=== PATIENT | female | born 1945 | race American Indian/Alaskan Native ===

== ENCOUNTER 2016-09-25 09:33 | Outpatient (CLI) | payer MEDICARE, OTHER ==
--- NOTE | 2016-09-26 08:23 | Mammography Report ---
BILATERAL DIGITAL SCREENING MAMMOGRAM with CAD: 09/25/16 09:33:00 CLINICAL: Routine screening. COMPARISON: 09/22/15 FINDINGS: There are bilateral scattered areas of fibroglandular density.No mass, architectural distortion or suspicious calcifications. IMPRESSION: No mammographic evidence of malignancy. BI-RADS CATEGORY: 1 -- Negative RECOMMENDATION: Routine mammographic screening in one year. COMMENT: Patient follow-up letters are generated by our [employer] application.
== END 2016-09-25 09:34 | disposition home or self-care (01) ==
LOC: SPVWC 09:33
PROVIDERS: ATTEND Internal Medicine
DX: Z12.31 Encounter for screening mammogram for malignant neoplasm of breast (principal)
CPT/HCPCS: 77067; G0202

== ENCOUNTER 2017-10-02 11:25 | Outpatient (CLI) | payer MEDICARE, OTHER ==
--- NOTE | 2017-10-02 16:31 | Mammography Report ---
BILATERAL DIGITAL SCREENING MAMMOGRAM with CAD: 10/02/17 11:25:00 CLINICAL: Routine screening. COMPARISON: 09/25/16 FINDINGS: There are bilateral scattered areas of fibroglandular density.No mass, architectural distortion or suspicious calcifications. IMPRESSION: No mammographic evidence of malignancy. BI-RADS CATEGORY: 1 -- Negative RECOMMENDATION: Routine mammographic screening in one year. COMMENT: Patient follow-up letters are generated by our [employer] application.
== END 2017-10-02 11:26 | disposition home or self-care (01) ==
LOC: SPVWC 11:25
PROVIDERS: ATTEND Internal Medicine
DX: Z12.31 Encounter for screening mammogram for malignant neoplasm of breast (principal)
CPT/HCPCS: 77067

== ENCOUNTER 2018-10-05 11:20 | Outpatient (CLI) | payer MEDICARE, OTHER ==
--- NOTE | 2018-10-05 14:55 | Mammography Report ---
BILATERAL DIGITAL SCREENING MAMMOGRAM with CAD: 10/05/18 11:20:00 CLINICAL: Routine screening. COMPARISON:10/02/17 and 09/25/16 FINDINGS: There are bilateral scattered fibroglandular densities.A left asymmetry with architectural distortion on the MLO view requires additional imaging. No suspicious calcifications. The right breast is negative. IMPRESSION: Left asymmetry requiring further workup. BI-RADS CATEGORY: 0 -- Additional Imaging Evaluation Required RECOMMENDATION: Recall for left mediolateral , spot magnification MLO views and left breast ultrasound if needed. ACR BI-RADS MAMMOGRAPHIC CODES: 0 = Needs additional imaging evaluation; 1 = Negative; 2 = Benign; 3 = Probably benign; 4 = Suspicious; 5 = Malignant; 6 = Known biopsy-proven malignancy COMMENT: 1. Dense breast tissue, i.e., adenosis, fibrocystic changes, etc., may obscure an underlying neoplasm. 2. Approximately 10% of cancers are not detected with mammography. 3. A negative mammography report should not delay biopsy if a clinically suspicious mass is present. COMMENT: Patient follow-up letters are generated via our [employer] application.
== END 2018-10-05 11:21 | disposition home or self-care (01) ==
LOC: SPVWC 11:20
PROVIDERS: ATTEND Internal Medicine
DX: Z12.31 Encounter for screening mammogram for malignant neoplasm of breast (principal); I10 Essential (primary) hypertension
CPT/HCPCS: 77067

== ENCOUNTER 2018-11-26 14:17 | Outpatient (CLI) | payer MEDICARE, OTHER ==
--- NOTE | 2018-11-26 16:18 | Ultrasound Report ---
Left mammogram and left breast ultrasound: The patient was recalled for left asymmetry. Additional lateral spot and whole breast compression imaging is performed. The asymmetry appears slightly smaller and less distinct on the combination of the additional views however it does not completely disappear. The margins are circumscribed but not completely smooth. It measures 3 mm. And is located in the superior half of the breast. It is not apparent in the CC views initially obtained. Whole breast ultrasound was performed failing to identify any echogenic abnormality. Impression: Persistent small asymmetry which cannot be well localized on mammography and not visualized on ultrasound. Recommendation: Repeat mammogram in 4 - 6 months to reevaluate. The findings and recommendations have been discussed with the patient. BI-RADS CATEGORY: 3 = Probably benign ACR BI-RADS MAMMOGRAPHIC CODES: 0 = Needs additional imaging evaluation; 1 = Negative; 2 = Benign; 3 = Probably benign; 4 = Suspicious; 5 = Malignant; 6 = Known biopsy-proven malignancy COMMENT: 1. Dense breast tissue, i.e., adenosis, fibrocystic changes, etc., may obscure an underlying neoplasm. 2. Approximately 10% of cancers are not detected with mammography. 3. A negative mammography report should not delay biopsy if a clinically suspicious mass is present.
== END 2018-11-26 14:18 | disposition home or self-care (01) ==
LOC: SPVWC 14:17
PROVIDERS: ATTEND Internal Medicine
DX: R92.8 Other abnormal and inconclusive findings on diagnostic imaging of breast (principal); I10 Essential (primary) hypertension; M17.12 Unilateral primary osteoarthritis, left knee

== ENCOUNTER 2019-04-20 13:07 | Outpatient (CLI) | payer MEDICARE, OTHER ==
--- NOTE | 2019-04-20 16:29 | Mammography Report ---
DIGITAL SCREENING MAMMOGRAM WITH CAD, 04/20/2019 INDICATION: Follow-up abnormal left mammogram. TECHNIQUE: Digital left 2D mammography was obtained in the craniocaudal and mediolateral oblique pro jections. This examination was interpreted with the benefit of Computer-Aided Detection analysis. COMPARISON: 03/05/2019, 10/02/2017 FINDINGS: Breast Density: There are scattered areas of fibroglandular density. There is no evidence of dominant mass, suspicious calcifications or architectural distortion in the l eft breast. Previously described small focal asymmetry in the superior left breast is no longer prese nt and presumably represented fibroglandular tissue. IMPRESSION: BI-RADS Category 2: Benign. No mammographic evidence of malignancy. Recommend resumption of annual screening mammography in 6 months. A "normal" or negative report should not discourage follow up or biopsy of a clinically significant f inding. A written summary of these findings will be mailed to the patient. The patient will be entered into a mammography reporting system which will generate a reminder letter for the patient's next appointmen t at the appropriate interval. The [employer] recommends yearly mammograms starting at age 40 and continuing as l lanre as a woman is in good health. Breast MRI is recommended for women with an approximate 20-25% or greater lifetime risk of breast cancer, including women with a strong family history of breast or ova radu cancer or who have been treated for Hodgkin's disease. Signer Name: Marsha Gomes MD Signed: 04/20/2019 4:24 PM Workstation Name: [id number]
== END 2019-04-20 13:08 | disposition home or self-care (01) ==
LOC: SPVWC 13:07
PROVIDERS: ATTEND Internal Medicine
DX: R92.8 Other abnormal and inconclusive findings on diagnostic imaging of breast (principal); I10 Essential (primary) hypertension

== ENCOUNTER 2019-09-20 10:01 | Outpatient (CLI) | payer MEDICARE, OTHER ==
--- NOTE | 2019-09-20 11:13 | Mammography Report ---
DIGITAL SCREENING MAMMOGRAM WITH CAD, 09/20/2019 INDICATION: Routine screening mammography. History of a left benign surgical biopsy. TECHNIQUE: Digital bilateral 2D mammography was obtained in the craniocaudal and mediolateral obliq ue projections. This examination was interpreted with the benefit of Computer-Aided Detection analysi s. COMPARISON: 04/20/2019, 11/26/2018, 10/05/2018, 10/02/2017 and 09/22/2015 FINDINGS: Breast Density: The breasts are heterogeneously dense, which may obscure small masses. There is no evidence of dominant mass, suspicious calcifications or architectural distortion in eithe r breast. IMPRESSION: No mammographic evidence of malignancy. Follow up recommendation: Routine yearly BI-RADS Category 1: Negative. A "normal" or negative report should not discourage follow up or biopsy of a clinically significant f inding. A written summary of these findings will be mailed to the patient. The patient will be entered into a mammography reporting system which will generate a reminder letter for the patient's next appointmen t at the appropriate interval. The [employer] recommends yearly mammograms starting at age 40 and continuing as l lanre as a woman is in good health. Breast MRI is recommended for women with an approximate 20-25% or greater lifetime risk of breast cancer, including women with a strong family history of breast or ova radu cancer or who have been treated for Hodgkin's disease. Signer Name: Alexander Villela MD Signed: 09/20/2019 11:09 AM Workstation Name: [id number]
== END 2019-09-20 10:02 | disposition home or self-care (01) ==
LOC: SPVWC 10:01
PROVIDERS: ATTEND Internal Medicine
DX: Z12.31 Encounter for screening mammogram for malignant neoplasm of breast (principal)
CPT/HCPCS: 77067

== ENCOUNTER 2020-09-22 10:27 | Outpatient (CLI) | payer MEDICARE, OTHER ==
--- NOTE | 2020-09-22 11:14 | Mammography Report ---
DIGITAL SCREENING MAMMOGRAM WITH CAD, 09/22/2020 CLINICAL INFORMATION / INDICATION: Routine screening mammography. SCREENING MAMMOGRAM TECHNIQUE: Digital bilateral 2D mammography was obtained in the craniocaudal and mediolateral obliqu e projections. This examination was interpreted with the benefit of Computer-Aided Detection analysis . COMPARISON: 09/20/2013 through 09/20/2019. FINDINGS: Breast Density: There are scattered areas of fibroglandular density. No dominant mass, suspicious calcifications, or architectural distortion in either breast. IMPRESSION: No mammographic evidence of malignancy. Follow up recommendation: Routine yearly BI-RADS Category 1: Negative. A "normal" or negative report should not discourage follow up or biopsy of a clinically significant f inding. A written summary of these findings will be mailed to the patient. The patient will be entered into a mammography reporting system which will generate a reminder letter for the patient's next appointmen t at the appropriate interval. The [employer] recommends yearly mammograms starting at age 40 and continuing as l lanre as a woman is in good health. Breast MRI is recommended for women with an approximate 20-25% or greater lifetime risk of breast cancer, including women with a strong family history of breast or ova radu cancer or who have been treated for Hodgkin's disease. Signer Name: Kwabena Park MD Signed: 09/22/2020 11:10 AM Workstation Name: [email or web address]
== END 2020-09-22 10:28 | disposition home or self-care (01) ==
LOC: SPVWC 10:27
PROVIDERS: ATTEND Internal Medicine
DX: Z12.31 Encounter for screening mammogram for malignant neoplasm of breast (principal)
CPT/HCPCS: 77067

== ENCOUNTER 2021-09-28 10:08 | Outpatient (CLI) | payer MEDICARE, OTHER ==
--- NOTE | 2021-09-28 11:46 | Mammography Report ---
DEXA BONE DENSITY SCAN INDICATION / CLINICAL INFORMATION: SCREENING. 75 years Female COMPARISON: None available. LUMBAR SPINE, L1-L4: - Bone mineral density (BMD) = 1.045 g/cm2. - T-score = 0 - Z-score = 1.9 Change (%) since most recent prior (if available): None available. LEFT HIP, NECK : - Bone mineral density (BMD) = 0.554 g/cm2. - T-score = -2.7 - Z-score = -1.1 Change (%) since most recent prior (if available): None available. IMPRESSION: 1. WHO Classification: Osteoporosis. Fracture Risk: High. Note: 10-Year Fracture Risk (FRAX) not reported. Fractures not reported because T-score is below -2.5 . BMD Reporting Guidelines (ISCD, 2015) BMD Reporting in Postmenopausal Women and in Men Age 50 and Older - T-scores are preferred. - The WHO densitometric classification is applicable. BMD Reporting in Females Prior to Menopause and in Males Younger Than Age 50 - Z-scores, not T-scores, are preferred. This is particularly important in children. - A Z-score of -2.0 or lower is defined as below the expected range for age, and a Z-score above -2.0 is within the expected range for age. - Osteoporosis cannot be diagnosed in men under age 50 on the basis of BMD alone. - The WHO diagnostic criteria may be applied to women in the menopausal transition. http://www.iscd.org/official-positions/8592-bgtq-njienhbd-positions-adult/ Signer Name: Duke Wyatt MD Signed: 09/28/2021 11:42 AM Workstation Name: [id number]
--- NOTE | 2021-09-29 03:00 | Mammography Report ---
DIGITAL SCREENING MAMMOGRAM WITH CAD, 09/28/2021 CLINICAL INFORMATION / INDICATION: Routine screening mammography. SCREENING TECHNIQUE: Digital bilateral 2D mammography was obtained in the craniocaudal and mediolateral obliqu e projections. This examination was interpreted with the benefit of Computer-Aided Detection analysis . COMPARISON: 121, 09/20/19 FINDINGS: Breast Density: There are scattered areas of fibroglandular density. No dominant mass, suspicious calcifications, or architectural distortion in either breast. IMPRESSION: No mammographic evidence of malignancy. Follow up recommendation: Routine yearly BI-RADS Category 1: NEGATIVE A "normal" or negative report should not discourage follow up or biopsy of a clinically significant f inding. A written summary of these findings will be mailed to the patient. The patient will be entered into a mammography reporting system which will generate a reminder letter for the patient's next appointmen t at the appropriate interval. The [employer] recommends yearly mammograms starting at age 40 and continuing as l lanre as a woman is in good health. Breast MRI is recommended for women with an approximate 20-25% or greater lifetime risk of breast cancer, including women with a strong family history of breast or ova radu cancer or who have been treated for Hodgkin's disease. Signer Name: Mainor Amado MD Signed: 09/29/2021 2:56 AM Workstation Name: [email or web address]
== END 2021-09-28 10:09 | disposition home or self-care (01) ==
LOC: MAMMO 10:08
PROVIDERS: ATTEND Internal Medicine
DX: Z12.31 Encounter for screening mammogram for malignant neoplasm of breast (principal); Z13.820 Encounter for screening for osteoporosis; M81.0 Age-related osteoporosis without current pathological fracture
CPT/HCPCS: 77067; 77080